=== PATIENT | female | born 1955 | race Caucasian/White ===

== ENCOUNTER 2019-02-15 17:24 | Emergency (ER) | payer MEDICARE, MEDICAID ==
[~2019-02-15] VITALS: Ht 152.4 cm; Wt 96.0 kg
[~2019-02-15 17:24] MED LIST: AMLODIPINE; ASPIRIN; BUSPIRONE; HUMALOG MIX 75-25; INSU100V19 SC; LOSA50TA2 PO; PAROXETINE; TOPIRAMATE
[2019-02-15 17:38] VITALS: RESP 18; Ht 152.4 cm; Wt 96.0 kg
[2019-02-15] MEDS ORDERED: ACETAMINOPHEN 325 MG TAB PO STA (18:15)
--- NOTE | 2019-02-15 18:32 | ERD ---
ER Documentation Chief Complaint Chief Complaint pt fell hit her hea due to dizziness ; no ko HPI This is a very pleasant 64-year-old female with past medical history of high cholesterol, type 2 diabetes, and TIA, currently on Plavix brought in by her family with concerns for fall which occurred at approximately 4 PM today. The daughter who is bedside states that she was on the phone with her mother who is the patient, when she suddenly stated she had fallen backwards injuring her head and tailbone. The patient did endorse an episode of vertigo which lasted a few seconds and caused the fall. There was no loss of consciousness. She denies any vertigo symptoms currently. She denies any chest pain or shortness of breath. She took no medication for relief of symptoms prior to arrival. Her current pain in the head and the tailbone is rated 9/10 in severity and constant. No other symptoms or injuries reported at this time. ROS All systems reviewed and are negative except as per history of present illness. Medications Home Meds Active Scripts Ibuprofen* (Motrin*) 600 Mg Tab, 600 MG PO Q6, #30 TAB Prov:MARYSOL MARSHALL PA-C 02/15/19 Reported Medications [Humalog Mix 75-25] No Conflict Check 09/12/16 [Topiramate] No Conflict Check 09/12/16 [Amlodipine] No Conflict Check 09/12/16 [Aspirin] No Conflict Check 09/12/16 [Buspirone] No Conflict Check 09/12/16 [Paroxetine] No Conflict Check 09/12/16 Losartan Potassium* (Cozaar*) 50 Mg Tablet, 50 MG PO DAILY 07/25/11 Insulin Glargine,Hum.rec.anlog (Lantus) 100 U/Ml Vial, 34 UNITS SC DAILY 07/25/11 Allergies Allergies: Coded Allergies: Penicillins (Verified Allergy, Unknown, 02/15/19) azithromycin (Verified Allergy, Unknown, 02/15/19) PMhx/Soc History of Surgery: Yes (HYSTERECTOMY) Anesthesia Reaction: No Hx Neurological Disorder: No Hx Respiratory Disorders: No Hx Cardiac Disorders: Yes (HTN) Hx Psychiatric Problems: No Hx Miscellaneous Medical Probl: No Hx Alcohol Use: No Hx Substance Use: No Hx Tobacco Use: No Smoking Status: Unknown if ever smoked FmHx Family History: No diabetes Physical Exam Vitals Vital Signs Date Temp Pulse Resp B/P (MAP) Pulse Ox O2 O2 Flow FiO2 Time Delivery Rate 02/15/19 56 156/70 100 Room Air 21:04 (98) 02/15/19 98.1 55 18 136/63 100 17:38 (87) Physical Exam Const: No acute distress Head: Atraumatic Eyes: Normal Conjunctiva ENT: Normal External Ears, Nose and Mouth. Neck: Full range of motion. No meningismus. Resp: Clear to auscultation bilaterally Cardio: Regular rate and rhythm, no murmurs Skin: No petechiae or rashes Back: No flank tenderness. No step-offs. Mild tenderness on palpation of the midline in the sacral region. Ext: No cyanosis, or edema Neur: Awake and alert neuro: M/S: Alert and oriented Face: EOMI, face and pharynx with normal sensation and function Motor: Normal strength throughout Sensation: Normal sensation throughout Speech: Normal Cerebel: Normal coordination Normal gait Normal finger to nose Psych: Normal Mood and Affect Result Diagram: 02/15/19190502/15/191905 Results 24 hrs Laboratory Tests Test 02/15/19 19:06 02/15/19 19:14 White Blood Count 9.4 10^3/ul Red Blood Count 4.87 10^6/ul Hemoglobin 14.3 g/dl Hematocrit 44.6 % Mean Corpuscular Volume 91.6 fl Mean Corpuscular Hemoglobin 29.4 pg Mean Corpuscular Hemoglobin Concent 32.1 g/dl Red Cell Distribution Width 15.0 % Platelet Count 280 10^3/UL Mean Platelet Volume 10.2 fl Immature Granulocytes % 0.500 % Neutrophils % 62.4 % Lymphocytes % 27.9 % Monocytes % 7.2 % Eosinophils % 1.6 % Basophils % 0.4 % Nucleated Red Blood Cells % 0.0 /100WBC Immature Granulocytes # 0.050 10^3/ul Neutrophils # 5.8 10^3/ul Lymphocytes # 2.6 10^3/ul Monocytes # 0.7 10^3/ul Eosinophils # 0.2 10^3/ul Basophils # 0.0 10^3/ul Nucleated Red Blood Cells # 0.0 10^3/ul Prothrombin Time 12.2 Sec Prothrombin Time Ratio 1.0 INR International Normalized Ratio 0.89 Activated Partial Thromboplast Time 27.5 Sec Sodium Level 141 mmol/L Potassium Level 4.5 mmol/L Chloride Level 109 mmol/L Carbon Dioxide Level 26 mmol/L Anion Gap 6 Blood Urea Nitrogen 31 mg/dl Creatinine 0.96 mg/dl Est Glomerular Filtrat Rate mL/min 59 mL/min Glucose Level 93 mg/dl Calcium Level 9.3 mg/dl Bedside Glucose 82 mg/dL Current Medications Medications Dose Sig/Edgar Start Time Status Last (Trade) Ordered Route PRN Stop Time Admin Dose Reason Admin 650 mg ONCE STAT 02/15/19 DC 02/15/19 Acetaminophen PO 18:15 19:00 (Tylenol 02/15/19 18:18 Tab) [place] [address] Radiology Main Line: [phone] DIAGNOSTIC IMAGING REPORT Patient: GABRIELLE SHETTY : 1955 Age: 64 Sex: F MR #: [id number] DOS: 02/15/191814 Ordering MD: MARYSOL MARSHALL PA-C Location: [facility] Room/Bed: PROCEDURE: CT Brain without contrast. CLINICAL INDICATION: Head trauma, dizziness TECHNIQUE: A CT of the brain was performed on a multi-slice CT scanner utilizing axial imaging from the skull base through the vertex without IV contrast. Coronal and sagittal re-formations were created. Images were reviewed on a PACS workstation. The CTDIvol is 38 mGy and the DLP is 6 and 34 mGycm. DICOM images are available. 3-D reconstructions were not performed. One or more of the following dose reduction techniques were utilized: 1.) Automated exposure control 2.) Adjustment of the mA +/- kV according to patient's size 3.) Use of iterative reconstruction technique. COMPARISON: None FINDINGS: The basilar cisterns, ventricular spaces and sulcal spaces are all mildly prominent. There is no midline shift or other evidence of mass effect. There are no abnormal foci of increased attenuation in the brain parenchyma. There is slight patchy white matter low attenuation change in both hemispheres without particular focality. Bone-windows show no lytic or blastic calvarial lesions. The visualized paranasal sinuses and mastoid air cells are clear. IMPRESSION: 1. Mild central and cortical cerebral atrophy and microvascular white matter disease, without evidence of intracranial hemorrhage, mass, or acute infarct. RPTAT:AAJJ Tu Negron Physician Date Time Electronically viewed and signed by Physician Balwinder on 02/15/2019 18:59 GW/ CC: MARYSOL MARSHALL PA-C [id number] [place] [address] Radiology Main Line: [phone] DIAGNOSTIC IMAGING REPORT Patient: GABRIELLE SHETTY : 1955 Age: 64 Sex: F MR #: [id number] DOS: 02/15/19 1815 Ordering MD: MARYSOL MARSHALL PA-C Location: [facility] Room/Bed: PROCEDURE: One view chest radiograph. CLINICAL INDICATION: Headache TECHNIQUE: An AP view of the chest was obtained. COMPARISON: None. FINDINGS: Mediastinum: Unremarkable. Heart size: Normal. Pulmonary vasculature: No visible engorgement. Lungs: Clear. Costophrenic sulci: Clear. Bony structures: There is multilevel bridging enthesopathy throughout the thoracic and upper lumbar spine. IMPRESSION: 1. No radiographic evidence of pneumonia or congestive failure. 2. D I S H. RPTAT:AAJJ Tu Negron Physician Date Time Electronically viewed and signed by Physician Balwinder on 02/15/2019 20:03 GW/ CC: MARYSOL MARSHALL PA-C [phone] [place] [address] Radiology Main Line: [phone] DIAGNOSTIC IMAGING REPORT Patient: GABRIELLE SHETTY : 1955 Age: 64 Sex: F MR #: [id number] DOS: 02/15/19 0000 Ordering MD: MARYSOL MARSHALL PA-C Location: [facility] Room/Bed: PROCEDURE: XR Sacrum and Coccyx. CLINICAL INDICATION: Trauma with pain. TECHNIQUE: AP and lateral views of the sacrum and coccyx were performed. 3 images COMPARISON: No prior studies are available for comparison. FINDINGS: On the lateral view there is suggestion of mild ventral displacement of the tip of the coccyx. There is no other evidence of sacral or coccygeal fracture. The SI joints are symmetric and unremarkable with no diastases. No focal soft tissue abnormalities are identified. IMPRESSION: 1. Possible slight anterior dislocation of the tip of the coccyx. It is also po ssible that this could be developmental. 2. Otherwise unremarkable sacrum and coccyx. RPTAT:AAJJ Physician Balwinder Date Time Electronically viewed and signed by Physician Balwinder on 02/15/2019 20:05 GW/ CC: MARYSOL MARSHALL PA-C [id number] Procedures/MDM 64-year-old female with past medical history of type 2 diabetes, high cholesterol, TIA currently on Plavix presenting to the emergency department complaining of a brief episode of vertigo which caused a fall onto the patient's head and coccyx just RIBBON TIER. EKG: Interpreted by ED physician Rate/Rhythm: Sinus bradycardia with rate of 56 bpm. QRS, ST, T-waves: No changes consistent w/ acute ischemia Impression: No evidence of ischemia or arrhythmia CBC: no e/o of systemic infection or severe anemia CMP: no e/o severe acidosis, alkalosis, renal failure, diabetic ketoacidosis, liver disease PT/INR: normal coagulation Medical decision making: Differentials include CVA, TIA, vertigo, intracranial mass, subarachnoid hemorrhage, subdural hemorrhage, and others. Patient was administered Tylenol in the department with good response. She was improved alondra or to discharge. CT head without contrast showed no acute abnormalities. The full report interpreted by the radiologist may be viewed above. X-ray of the sacrum and coccyx revealed possible fracture the patient was advised to follow- up with orthopedic physician within the next 24 to 48 hours as an outpatient. The full report interpreted by the radiologist may be viewed above. Patient is optimized on her current medications for diabetes and high cholesterol. Anticoagulation is at optimal levels according to PT/INR. I doubt life-threatening or emergent pathology. I did discuss the patient's case with attending ED physician, Dr. Rah Azevedo was in agreement with the diagnosis and plan to discharge home with close primary care follow-up. Departure Diagnosis: Primary Impression: Dizziness Additional Impression: Fall Condition: Fair MARYSOL MARSHALL PA-C February 15, 2019 18:32
[2019-02-15] MEDS ORDERED: IBUP-1542 PO (20:52)
[2019-02-15 21:04] VITALS: BP 156/70; PULSE 56
== END 2019-02-15 21:05 | disposition home or self-care (01) ==
LOC: FTE 17:24
DX: R42 Dizziness and giddiness (principal); E11.9 Type 2 diabetes mellitus without complications; I10 Essential (primary) hypertension; Z79.4 Long term (current) use of insulin; Z86.73 Personal history of transient ischemic attack (TIA), and cerebral infarction without residual deficits
CPT/HCPCS: 36415; 70450; 71045; 72220; 80048; 82962; 85025; 85610; 85730; 93005

== ENCOUNTER 2019-08-15 20:10 | Emergency (ER) | payer MEDICARE, MEDICAID ==
[~2019-08-15] VITALS: Ht 162.6 cm; Wt 104.9 kg
[~2019-08-15 20:10] MED LIST changes: +BUSP10TA2 PO; +CHOL100062 PO; +CLON0.5T14 PO; +CLOP75TA28 PO; +CYCL1DRO OPHTHALMIC; +DORZ10DR6 OPHTHALMIC; +DULA1.5P SQ; +IBUP-1542 PO; +INSU100I31 SQ; +LATA2.5D2 BOTH EYES; +LEVE500T8 PO; +MECL-77 PO; +MELO15TA30 PO; +METF-849 PO; +NOVO3I SQ; +OLOP2.5D BOTH EYES; +OMEP40CA38 PO; +PARO40TA79 PO; +PRAV10TA43 PO; +TRAZ-188 PO
[2019-08-15 20:33] VITALS: Ht 162.6 cm; Wt 104.9 kg
[2019-08-15 23:20] VITALS: BP 134/65; PULSE 59; RESP 20
== END 2019-08-15 23:20 | disposition home or self-care (01) ==
LOC: E/R 20:10
DX: E11.649 Type 2 diabetes mellitus with hypoglycemia without coma (principal); R53.1 Weakness; I10 Essential (primary) hypertension; Z79.01 Long term (current) use of anticoagulants; Z79.4 Long term (current) use of insulin
CPT/HCPCS: 80048; 81003; 82962; 85025; 93005